=== PATIENT | female | born 2000 | race Caucasian/White ===

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

== ENCOUNTER 2021-05-22 21:31 | Emergency (ER) | payer BC, MEDICAID ==
[~2021-05-22] VITALS: Ht 167.7 cm; Wt 106.6 kg
--- NOTE | 2021-05-22 21:35 | ED Chest Pain ---
General Stated Complaint: CHEST PAIN History of Present Illness Date Seen by Provider: May 22, 2021 Time Seen by Provider: 21:34 Initial Comments 89-year-old female presents with intermittent chest pain and palpitations occurring episodically over the past 1 week. Initially happened 1 week ago when she was outdoors playing golf for her school, this week and happened after playing outdoor volleyball. States she started to have a rapid heart rate feels chest pain and pressure and some mild shortness of air. Denies recent illness, fever chills or cough. Denies history of asthma. Does admit to history of "tachycardia" and similar symptoms in the past Allergies and Home Medications Allergies Coded Allergies: No Known Drug Allergies (Unverified , 05/22/21) Patient Home Medication List Home Medication List Reviewed: Yes Review of Systems Review of Systems Constitutional: No fever, No malaise, No weakness Respiratory: Denies Cough, Denies Shortness of Air Cardiovascular: See HPI, Chest Pain; Denies Edema; Palpitations; Denies Syncope Gastrointestinal: Denies Abdominal Pain, Denies Nausea, Denies Vomiting Musculoskeletal: No back pain, No joint pain Skin: No change in color, No rash Past Pqsxuee-Ywjtli-Ktibin Hx Patient Social History Tobacco Use?: No Alcohol Use?: No Physical Exam Vital Signs Vital Signs - First Documented 05/22/21 05/22/21 21:40 21:50 Temp 36.8 Pulse 103 Resp 16 B/P (MAP) 158/118 (131) Pulse Ox 100 O2 Delivery Room Air Capillary Refill : Height, Weight, BMI Height: '" Weight: lbs. oz. kg; BMI Method: General Appearance: No Apparent Distress, WD/WN HEENT: PERRL/EOMI, Normal ENT Inspection Neck: Full Range of Motion, Supple Respiratory: Chest Non Tender, Lungs Clear, Normal Breath Sounds, No Accessory Muscle Use, No Respiratory Distress Cardiovascular: Regular Rate, Rhythm, No Edema, No JVD Gastrointestinal: Non Tender, Soft Extremity: Normal Capillary Refill, Non Tender Neurologic/Psychiatric: Alert, Oriented x3, No Motor/Sensory Deficits, Normal Mood/Affect Skin: Normal Color, Warm/Dry, Rash (erythematous patches upper chest) Progress/Results/Core Measures Results/Orders Lab Results Laboratory Tests Test 05/22/21 21:53 Range/Units White Blood Count 11.8 H 4.3-11.0 10^3/uL Red Blood Count 4.45 3.80-5.11 10^6/uL Hemoglobin 13.2 11.5-16.0 g/dL Hematocrit 39 35-52 % Mean Corpuscular Volume 88 80-99 fL Mean Corpuscular Hemoglobin 30 25-34 pg Mean Corpuscular Hemoglobin Concent 34 32-36 g/dL Red Cell Distribution Width 13.4 10.0-14.5 % Platelet Count 340 130-400 10^3/uL Mean Platelet Volume 10.5 9.0-12.2 fL Immature Granulocyte % (Auto) 0 % Neutrophils (%) (Auto) 58 42-75 % Lymphocytes (%) (Auto) 32 12-44 % Monocytes (%) (Auto) 6 0-12 % Eosinophils (%) (Auto) 3 0-10 % Basophils (%) (Auto) 0 0-10 % Neutrophils # (Auto) 6.9 1.8-7.8 X 10^3 Lymphocytes # (Auto) 3.8 1.0-4.0 X 10^3 Monocytes # (Auto) 0.7 0.0-1.0 X 10^3 Eosinophils # (Auto) 0.4 H 0.0-0.3 10^3/uL Basophils # (Auto) 0.0 0.0-0.1 10^3/uL Immature Granulocyte # (Auto) 0.0 0.0-0.1 10^3/uL Sodium Level 140 135-145 MMOL/L Potassium Level 4.0 3.6-5.0 MMOL/L Chloride Level 104 98-107 MMOL/L Carbon Dioxide Level 23 21-32 MMOL/L Anion Gap 13 5-14 MMOL/L Blood Urea Nitrogen 9 7-18 MG/DL Creatinine 0.90 0.60-1.30 MG/DL Estimat Glomerular Filtration Rate 81 BUN/Creatinine Ratio 10 Glucose Level 97 70-105 MG/DL Calcium Level 9.9 8.5-10.1 MG/DL Corrected Calcium 9.7 8.5-10.1 MG/DL Total Bilirubin 0.2 0.1-1.0 MG/DL Aspartate Amino Transf (AST/SGOT) 15 5-34 U/L Alanine Aminotransferase (ALT/SGPT) 14 0-55 U/L Alkaline Phosphatase 130 40-136 U/L Troponin I < 0.30 <0.30 NG/ML Total Protein 7.3 6.4-8.2 GM/DL Albumin 4.3 3.2-4.5 GM/DL My Orders Orders - EVARISTO SILVESTRE DO Ed Iv/Invasive Line Start (05/22/21 21:45) Chest 1 View Ap/Pa Only (05/22/21 21:45) Ekg Tracing (05/22/21 21:45) Troponin I Fs (05/22/21 21:45) Cbc With Automated Diff (05/22/21 21:45) Comprehensive Metabolic Panel (05/22/21 21:45) Ns Iv 1000 Ml (Sodium Chloride 0.9%) (05/22/21 22:00) Vital Signs/I&O 05/22/21 05/22/21 21:40 21:50 Temp 36.8 Pulse 103 Resp 16 B/P (MAP) 158/118 (131) Pulse Ox 100 O2 Delivery Room Air Initial ECG Impression Date: May 22, 2021 Initial ECG Impression Time: 22:00 Initial ECG Rate: 87 Initial ECG Rhythm: Normal Sinus Initial ECG Impression: Normal Initial ECG Comparisson: No Previous ECG Available Diagnostic Imaging Diagonstic Imaging: Xray Plain Films/CT/US/NM/MRI: chest Comments Date of Exam:05/22/21 CHEST 1 VIEW AP/PA ONLY INDICATION: Chest pain. EXAMINATION: Frontal chest was obtained at 9:42 p.m. Heart and mediastinal silhouette are normal in appearance. The lungs are clear. There is no pneumothorax or pleural fluid. IMPRESSION: Negative chest. Dictated on workstation # [id number] Dict: 05/22/212200 Trans: 05/22/212202 [facility] [id number] Interpreted by: BREONNA CORTES MD Electronically signed by: Departure Impression Primary Impression: Chest pain Qualified Codes: R07.9 - Chest pain, unspecified Disposition: 01 HOME, SELF-CARE Condition: Improved Departure-Patient Inst. Decision time for Depature: 22:28 Referrals: BENTLEY HENSLEY DO (PCP/Family) Primary Care Physician Patient Instructions: Chest Pain (DC), Sinus Tachycardia (DC) Add. Discharge Instructions: follow up with your PCP, Dr Hensley in 3 to 5 days for re-evaluation. Return to the ER for any worsening of your symptoms EVARISTO SILVESTRE DO May 22, 2021:35
[2021-05-22 21:59] LABS: BASOPHILS % (AUTO) 0 % (0-10); EOSINOPHILS % (AUTO) 3 % (0-10); HEMATOCRIT 39 % (35-52); HEMOGLOBIN 13.2 g/dL (11.5-16.0); LYMPHOCYTES % (AUTO) 32 % (12-44); MEAN CORPUSCULAR HEMOGLOBIN 30 pg (25-34); MEAN CORPUSCULAR HGB CONC 34 g/dL (32-36); MEAN CORPUSCULAR VOLUME 88 fL (80-99); MEAN PLATELET VOLUME 10.5 fL (9.0-12.2); MONOCYTES % (AUTO) 6 % (0-12); NEUTROPHILS % (AUTO) 58 % (42-75); PLATELET COUNT 340 10^3/uL (130-400); WHITE BLOOD COUNT 11.8 10^3/uL (4.3-11.0)
[2021-05-22 22:00] LABS: EOSINOPHILS # (AUTO) 0.4 10^3/uL (0.0-0.3); LYMPHOCYTES # (AUTO) 3.8 X 10^3 (1.0-4.0); MONOCYTES # (AUTO) 0.7 X 10^3 (0.0-1.0); NEUTROPHILS # (AUTO) 6.9 X 10^3 (1.8-7.8)
[2021-05-22] MEDS ORDERED: NS IV 1000 ML 1,000 ML IV SCH (22:00)
--- NOTE | 2021-05-22 22:03 | Diagnostic Imaging Report ---
INDICATION: Chest pain. EXAMINATION: Frontal chest was obtained at 9:42 p.m. Heart and mediastinal silhouette are normal in appearance. The lungs are clear. There is no pneumothorax or pleural fluid. IMPRESSION: Negative chest. Dictated by: Dictated on workstation # [id number]
[2021-05-22 22:17] LABS: BUN/CREATININE RATIO 10; CARBON DIOXIDE 23 MMOL/L (21-32); CHLORIDE 104 MMOL/L (98-107); GFR ESTIMATED 81; SODIUM 140 MMOL/L (135-145)
[2021-05-22 22:18] LABS: ALANINE AMINOTRANSFERASE 14 U/L (0-55); ALBUMIN 4.3 GM/DL (3.2-4.5); ALKALINE PHOSPHATASE 130 U/L (40-136); BILIRUBIN,TOTAL 0.2 MG/DL (0.1-1.0); CALCIUM 9.9 MG/DL (8.5-10.1); GLUCOSE 97 MG/DL (70-105); TOTAL PROTEIN 7.3 GM/DL (6.4-8.2)
[2021-05-22 22:48] VITALS: BP 145/86
== END 2021-05-22 22:48 | disposition home or self-care (01) ==
LOC: EDUNIT# 21:31 → ER FS 21:33
DX: R07.9 Chest pain, unspecified (principal)
CPT/HCPCS: 36415; 71045; 80053; 84484; 85025; 93005

== ENCOUNTER → 2022-01-17 | Outpatient (CLI) | payer BC, MEDICAID ==
--- NOTE | 2022-01-17 15:14 | Diagnostic Imaging Report ---
INDICATION: Lower back pain. COMPARISON: None FINDINGS: Frontal, lateral, and oblique radiographic views of the lumbar spine were obtained. There are six lumbar-type vertebral bodies with lumbarization of S1. Evaluation of the static alignment of the lumbar spine shows slight grade 1 retrolisthesis of L5 on S1 and mild grade 1/grade 2 anterolisthesis of S1 on S2. There is no pars defect of L5 on the oblique views. S1 vertebral body is suboptimally visualized on the oblique views. Underlying pars defect cannot be entirely excluded. There is also slight levoscoliotic deformity of the lumbar spine. There is no evidence of jumped facets. Vertebral body heights are maintained. There is no acute fracture. Intervertebral disc heights are well preserved as well. IMPRESSION: 1. 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 Correlation with CT is recommended to assess for pars defects. 2. No acute fracture or dislocation. Dictated by: Dictated on workstation # [id number]
== END ==
LOC: RAD FS 13:26
PROVIDERS: ATTEND Nurse Practitioner
DX: M43.17 Spondylolisthesis, lumbosacral region (principal); M43.18 Spondylolisthesis, sacral and sacrococcygeal region
CPT/HCPCS: 72110